=== PATIENT | female | born 1935 | race Asian ===

== ENCOUNTER 2022-06-03 16:05 | Emergency (ER) | payer MEDICARE, OTHER ==
[~2022-06-03] VITALS: Ht 152.4 cm; Wt 48.0 kg
[2022-06-03] MEDS ORDERED: CARBAMIDE PEROXIDE 6.5% 15 ML OTIC SOLUTION AU ONE (20:00)
[2022-06-03 20:47] VITALS: BP 121/62
== END 2022-06-03 20:49 | disposition home or self-care (01) ==
LOC: EMS 16:09
DX: H61.23 Impacted cerumen, bilateral (principal); J44.9 Chronic obstructive pulmonary disease, unspecified
CPT/HCPCS: 99282; Z7502; Z7610

== ENCOUNTER → 2022-12-10 | Outpatient (CLI) | payer MEDICARE, OTHER | END | disposition home or self-care (01) | LOC: RADMN 12:31 | PROVIDERS: ATTEND Internal Medicine | DX: M50.221 Other cervical disc displacement at C4-C5 level (principal); M50.322 Other cervical disc degeneration at C5-C6 level; M50.323 Other cervical disc degeneration at C6-C7 level; M48.02 Spinal stenosis, cervical region; M47.812 Spondylosis without myelopathy or radiculopathy, cervical region; M25.78 Osteophyte, vertebrae; M79.604 Pain in right leg | CPT/HCPCS: 72141 ==